=== PATIENT | female | born 1985 | race Hispanic/Latino ===

== ENCOUNTER 2024-04-10 00:03 | Emergency (ER) | payer OTHER ==
[2024-04-10] MEDS ORDERED: Ketorolac Tromethamine 30 MG (1 mL) VIAL ONE (03:40)
== END 2024-04-10 03:51 | disposition home or self-care (01) ==
LOC: CSHERS 00:03
DX: R07.89 Other chest pain (principal); F17.210 Nicotine dependence, cigarettes, uncomplicated; I10 Essential (primary) hypertension
CPT/HCPCS: 93005; 96372; J1885